=== PATIENT | female | born 1950 | race Caucasian/White ===

== ENCOUNTER 2016-11-15 21:30 | Emergency (ER) | payer OTHER ==
[2016-11-15 21:47] VITALS: BP 122/61; PULSE 91; TEMP 98.4; BMI 23.1
--- NOTE | 2016-11-15 21:57 | PDOC ---
History of Present Illness - General Chief Complaint: Allergic Reaction Stated Complaint: ALLERGIC REACTION Time Seen by Provider: 11/15/16 21:57 Past History - Past Medical History Allergies/Adverse Reactions: Allergies Allergy/AdvReac Type Severity Reaction Status Date / Time No Known Allergies Allergy Verified 11/15/16 21:43 Home Medications: Ambulatory Orders Calcium 250Mg/Vit-D 125 Units [Oscal 250 mg+D] 1 each PO DAILY 04/18/12 Cholecalciferol (Vitamin D3) [Vitamin D3] 400 unit PO DAILY 04/18/12 Erythromycin 0.5% Eye Ointment [Erythromycin 0.5% Eye Ointment -] 1 applic OS TID #1 tube 04/18/12 Cancer: Yes (Colon CA) - Psycho/Social/Smoking Cessation Hx Anxiety: No Suicidal Ideation: No Smoking Status: No Smoking History: Never smoked Have you smoked in the past 12 months: No Number of Cigarettes Smoked Daily: 0 Information on smoking cessation initiated: No Hx Alcohol Use: No Drug/Substance Use Hx: No Substance Use Type: None *Physical Exam - Vital Signs Last Vital Signs Temp Pulse Resp BP Pulse Ox 98.4 F 91 H 20 122/61 100 11/15/16 21:44 11/15/16 21:44 11/15/16 21:44 11/15/16 21:44 11/15/16 21:44
--- NOTE | 2016-11-15 21:59 | PDOC ---
Attending Attestation - Resident Resident Name: Hayley Hale - ED Attending Attestation I have performed the following: I have examined & evaluated the patient, The case was reviewed & discussed with the resident, I agree w/resident's findings & plan, Exceptions are as noted
--- NOTE | 2016-11-15 22:16 | PDOC ---
History of Present Illness - History of Present Illness Initial Comments: 11/15/16 23:23 66 y/o F with a PMHx of colon CA presents to the ED after an allergic reaction. Patient reports she was eating dinner and had difficulty swallowing and breathing. She reports facial swelling and scalp itching. She took Prednisone ( currently on 50 mg daily) and Benadryl. Patient reports no recent changes in diet or skin care. Patient spoke with PCP who told her to go to the ER to be evaluated. Patient is not currently short of breath and does not have any swelling. Denies chest pain. Denies fever, chills, NVD. <Sadia Weber - Last Filed: 11/15/16 23:23> <Michell Tamayo - Last Filed: 11/16/16 01:34> - General Chief Complaint: Allergic Reaction Stated Complaint: ALLERGIC REACTION Time Seen by Provider: 11/15/16 21:57 Past History <Sadia Weber - Last Filed: 11/15/16 23:23> - Past Medical History Cancer: Yes (Colon CA) - Psycho/Social/Smoking Cessation Hx Anxiety: No Suicidal Ideation: No Smoking Status: No Smoking History: Never smoked Have you smoked in the past 12 months: No Number of Cigarettes Smoked Daily: 0 Information on smoking cessation initiated: No Hx Alcohol Use: No Drug/Substance Use Hx: No Substance Use Type: None <Michell Tamayo - Last Filed: 11/16/16 01:34> - Past Medical History Allergies/Adverse Reactions: Allergies Allergy/AdvReac Type Severity Reaction Status Date / Time No Known Allergies Allergy Verified 11/15/16 21:43 Home Medications: Ambulatory Orders Calcium 250Mg/Vit-D 125 Units [Oscal 250 mg+D] 1 each PO DAILY 04/18/12 Cholecalciferol (Vitamin D3) [Vitamin D3] 400 unit PO DAILY 04/18/12 Diphenhydramine HCl [Benadryl Capsule -] 25 mg PO TID 11/15/16 Prednisone [Prednisone 50 MG TABLETS] 50 mg PO DAILY 11/15/16 Review of Systems - Review of Systems Comments:: 11/15/16 23:23 GENERAL/CONSTITUTIONAL: No fever or chills. No weakness. HEAD, EYES, EARS, NOSE AND THROAT: (+) difficulty swallowing. No change in vision. No ear pain or discharge. CARDIOVASCULAR: (+) shortness of breath. No chest pain. RESPIRATORY: No cough, wheezing, or hemoptysis. GASTROINTESTINAL: No nausea, vomiting, diarrhea or constipation. GENITOURINARY: No dysuria, frequency, or change in urination. MUSCULOSKELETAL: No joint or muscle swelling or pain. No neck or back pain. SKIN: (+) scalp itching. No rash NEUROLOGIC: No headache, vertigo, loss of consciousness, or change in strength/ sensation. ENDOCRINE: No increased thirst. No abnormal weight change. HEMATOLOGIC/LYMPHATIC: No anemia, easy bleeding, or history of blood clots. ALLERGIC/IMMUNOLOGIC: (+) facial swelling <Sadia Weber - Last Filed: 11/15/16 23:23> *Physical Exam - Vital Signs Last Vital Signs Temp Pulse Resp BP Pulse Ox 98.4 F 91 H 20 122/61 100 11/15/16 21:44 11/15/16 21:44 11/15/16 21:44 11/15/16 21:44 11/15/16 23:12 <Sadia Weber A - Last Filed: 11/15/16 23:23> - Vital Signs Last Vital Signs Temp Pulse Resp BP Pulse Ox 98.4 F 91 H 20 122/61 100 11/15/16 21:44 11/15/16 21:44 11/15/16 21:44 11/15/16 21:44 11/15/16 21:44 - Physical Exam Comments: GENERAL: Awake, alert, and fully oriented, in no acute distress HEAD: No signs of trauma EYES: PERRLA, EOMI, sclera anicteric, conjunctiva clear ENT: Auricles normal inspection, hearing grossly normal, nares patent, oropharynx clear without exudates. Moist mucosa. Uvula midline. Tonsils normal in appearance. NECK: Normal ROM, supple, no lymphadenopathy, JVD, or masses LUNGS: Breath sounds equal, clear to auscultation bilaterally. No wheezes, and no crackles HEART: Regular rate and rhythm, normal S1 and S2, no murmurs, rubs or gallops ABDOMEN: Soft, nontender, normoactive bowel sounds. No guarding, no rebound. No masses EXTREMITIES: Normal range of motion, no edema. No clubbing or cyanosis. No cords, erythema, or tenderness NEUROLOGICAL: Cranial nerves II through XII grossly intact. Normal speech, normal gait SKIN: Warm, Dry, normal turgor. R hand with small papular rash to the dorsum, just distal to the wrist. +Scattered erythematous papules to the scalp. <Michell Tamayo - Last Filed: 11/16/16 01:34> Medical Decision Making - Medical Decision Making Pt presented s/p allergic reaction. She is currently on prednisone and benadryl following a reaction to poison [place]. She has a scalp rash that predated the sumac exposure. Considered a reaction to the benadryl itself, but she is on the dye-free formulation. Likely she has an environmental allergy. However, the reaction cleared up prior to evaluation in the ED. No concerning findings on exam. Oropharynx is patent. Rash to R hand c/w history of poison [place] exposure. No facial swelling. I discussed with patient's son via phone at her request. No indication for any additional management at this time, as she is on prednisone 50 mg and benadryl. Epi not indicated. Recommended that she f/u with an diesel powerplant supervisor as an outpatient, as she likely needs skin testing once this acute illness improves. Also advised close f/u with PMD. <Michell Tamayo - Last Filed: 11/16/16 01:34> *DC/Admit/Observation/Transfer - Attestations Scribe Attestion: 11/15/16 23:23 Documentation prepared by Sadia Weber, acting as medical claims processor for Michell Tamayo MD. <Sadia Weber - Last Filed: 11/15/16 23:23> - Discharge Dispostion Admit: No <Michell Tamayo - Last Filed: 11/16/16 01:34> Diagnosis at time of Disposition: Allergic reaction Qualifiers: Encounter type: initial encounter Qualified Code(s): T78.40XA - Allergy, unspecified, initial encounter - Discharge Dispostion Disposition: HOME Condition at time of disposition: Stable - Referrals Referrals: Myra Asencio [Primary Care Provider] - - Patient Instructions Printed Discharge Instructions: DI for General Allergic Reactions
== END 2016-11-16 00:31 | disposition home or self-care (01) ==
LOC: JER 21:30
DX: T78.40XA Allergy, unspecified, initial encounter (principal); X58.XXXA Exposure to other specified factors, initial encounter; Z85.038 Personal history of other malignant neoplasm of large intestine
CPT/HCPCS: 70360-TC; 99282-25